=== PATIENT | male | born 1950 | race American Indian/Alaskan Native ===

== ENCOUNTER 2019-03-11 11:29 | Observation (INO) | payer MEDICARE ==
[2019-03-09 12:59] LABS: Basophils % (Auto) 0.3 % (0.0-1.8); Eosinophils # (Auto) 0.4 K/mm3 (0.0-0.4); Hematocrit 44.3 % (35.5-45.6); Hemoglobin 14.1 gm/dl (11.8-15.2); Lymphocytes # (Auto) 3.8 K/mm3 (1.2-5.4); Mean Corpuscular HGB Conc 32 % (32-34); Mean Corpuscular Volume 84 fl (84-94); Monocytes # (Auto) 0.4 K/mm3 (0.0-0.8); Monocytes % (Auto) 6.1 % (0.0-7.3); Platelet Count 238 K/mm3 (140-440); Red Cell Distribution Width 13.7 % (13.2-15.2)
[2019-03-09 13:18] LABS: Alanine Aminotransferase 12 units/L (7-56); Albumin 4.4 g/dL (3.9-5); BUN/Creatinine Ratio 17; Blood Urea Nitrogen 15 mg/dL (9-20); Calcium 9.9 mg/dL (8.4-10.2); Hemolysis Index 31
--- NOTE | 2019-03-09 16:18 | Anesthesia Consultation ---
Anesthesia Consult and Med Hx Date of service: 03/09/19 - Airway ROM Head & Neck: Adequate Mental/Hyoid Distance: Adequate Mallampati Class: Class II Intubation Access Assessment: Good - Pulmonary Exam CTA: Yes - Cardiac Exam Cardiac Exam: RRR - Pre-Operative Health Status ASA Pre-Surgery Classification: ASA2 Proposed Anesthetic Plan: General - Pulmonary Hx Smoking: No Hx Sleep Apnea: No (MARIAMA PRE SCREEN HIGH RISK) - Cardiovascular System Hx Hypertension: Yes (X 3 YRS)
[~2019-03-11 11:29] MED LIST: HYDROmorphone 1 MG/1 ML INJ IV PRN; MIDAZOLAM 2 MG/2 ML INJ IV NR; ceFAZolin/STERILE WATER 2 GM/20 ML SYRINGE IV NR
[2019-03-11] MEDS: SODIUM CHLORIDE 0.9% 1000 ML 1,000 ML IV SCH ×2 (11:50→17:55)
--- NOTE | 2019-03-11 12:05 | Anesthesia Day of Surgery ---
Anesthesia Day of Surgery - Day of Surgery Patient Examined: Yes Patient H&P Reviewed: Yes Patient is NPO: Yes
[2019-03-11] MEDS ORDERED: NEOMY 40 MG/POLYMYXIN B 200,000 UNITS/ML (GU) AMPULE IR ONE ×2 (12:34→13:42)
[2019-03-11] MEDS ORDERED: PROPOFOL 200 MG/20 ML VIAL IV ONE (12:35)
[2019-03-11] MEDS ORDERED: fentaNYL 100 MCG/2 ML INJ ONE (12:35)
[2019-03-11] MEDS ORDERED: LIDOCAINE MPF (2%) 20 MG/1 ML VIAL 5 ML ONE (13:00)
[2019-03-11] MEDS ORDERED: ONDANSETRON 4 MG/2 ML INJ ONE (13:13)
[2019-03-11] MEDS ORDERED: ePHEDrine SULFATE 50 MG/1 ML INJ ONE (13:27)
[2019-03-11] MEDS ORDERED: BUPIVACAINE/PF (0.5%) 5 MG/1 ML 30 ML VIAL INFILTRATI ONE (13:40)
[2019-03-11] MEDS ORDERED: SODIUM CHLORIDE 0.9% P/F 10 ML VIAL IV ONE (13:41)
[2019-03-11] MEDS ORDERED: SODIUM CHLORIDE 0.9% IRR 1,500 ML BOTTLE IR ONE (13:42)
[2019-03-11] MEDS ORDERED: SODIUM CHLORIDE 0.9% 1000 ML 1,000 ML ONE (13:54)
[2019-03-11] MEDS ORDERED: GENTAMICIN/NS 100 MG/100 ML 100 MG/100 ML BAG IV ONE (14:06)
[2019-03-11] MEDS ORDERED: ACETAMINOPHEN 325 MG TAB PO PRN (14:37)
[2019-03-11] MEDS ORDERED: ONDANSETRON 4 MG/2 ML INJ IV PRN (14:37)
[2019-03-11] MEDS ORDERED: ZOLPIDEM 5 MG TAB PO PRN (14:37)
[2019-03-11] MEDS ORDERED: NALOXONE 0.4 MG/1 ML INJ IV PRN (14:37)
--- NOTE | 2019-03-11 14:37 | Short Stay Summary ---
Short Stay Documentation Date of service: 03/11/19 - History H&P: obtained from office - Allergies and Medications Current Medications: Allergies No Known Allergies Allergy (Verified 02/26/19 12:05) Home Medications Medication Instructions Recorded Confirmed Last Taken Type Albuterol Sulfate [Proventil Hfa] 2 puff IH PRN PRN 02/26/19 03/11/19 03/10/19 History AtorvaSTATin [Lipitor] 10 mg PO QHS 02/26/19 03/11/19 03/08/19 History Cetirizine HCl [ZyrTEC 10mg cap] 10 mg PO PRN PRN 02/26/19 03/11/19 03/10/19 History Cholecalciferol Vit D3 [Vitamin D3 1,000 unit PO QDAY 02/26/19 02/26/19 03/09/19 History 1,000 UNIT TAB] Cyanocobalamin (Vitamin B-12) 2,500 mcg PO DAILY 02/26/19 02/26/19 03/09/19 History [Vitamin B12] Losartan/Hydrochlorothiazide 1 each PO PRN PRN 02/26/19 03/11/19 03/11/19 07:30 History [Losartan-Hctz 50-12.5 mg Tab] metFORMIN [Glucophage] 500 mg PO QDAY 02/26/19 03/11/19 03/10/19 History Fluticasone [Flonase] 1 spray NS QDAY 03/11/19 03/11/19 03/10/19 History Active Medications Cefazolin Sodium (Ancef/Sterile Water 2 Gm/20 Ml) 2 gm IV PREOP NR Stop: 03/11/19 23:59 Hydromorphone HCl (Dilaudid) 0.5 mg IV Q10MIN PRN PRN Reason: Pain , Severe (7-10) Stop: 03/11/19 16:00 Sodium Chloride (Nacl 0.9% 1000 Ml) 1,000 mls @ 100 mls/hr IV DIRECT WILL Last Admin: 03/11/19 11:50 Dose: 100 mls/hr Documented by: - Brief post op/procedure progress note Date of procedure: 03/11/19 Pre-op diagnosis: ed Post-op diagnosis: same Procedure: ipp, scrotaplasty (18cm + 3cm RTE--AMS) Surgeon: MARLEN RO Estimated blood loss: 50-100ml Pathology: list (scrotal skin) Specimen disposition: to lab Condition: stable - Hospital course Hospital course: pt has nocro, bactrim at home post op info on chart - Disposition Condition at discharge: Stable Disposition: DC-01 TO HOME OR SELFCARE Short Stay Discharge Plan Follow up with: DR STEVE [Other] - 7 Days
[2019-03-11] MEDS ORDERED: NON-FORMULARY EACH (Losartan/Hydrochlorothiazide [Losartan-Hctz 50-12.5 Mg Tab] 1 EACH) PO PRN (14:40)
[2019-03-11] MEDS ORDERED: ALBUTEROL 8.5 GM INHALATION IH PRN (14:40)
[2019-03-11] MEDS ORDERED: DEXTROSE 50% IN WATER (25GM) 50 ML SYRINGE IV PRN ×2 (14:42→20:00)
[2019-03-11] MEDS ORDERED: SODIUM CHLORIDE 0.45% 1000 ML 1,000 ML IV SCH (15:00)
--- NOTE | 2019-03-11 15:20 | Operative Report ---
PREOPERATIVE DIAGNOSIS: Erectile dysfunction. POSTOPERATIVE DIAGNOSIS: Erectile dysfunction and redundant scrotal skin. PROCEDURE: Insertion of inflatable penile prosthesis (AMS and InhibiZone 18-Faroese 18 cm x 3 cm rear tip extenders), injection of pharmacologic penile agent and scrotoplasty. SURGEON: Luis Han MD ANESTHESIA: General. INSPECTOR SEMICONDUCTOR WAFER: Peg Dyson. ESTIMATED BLOOD LOSS: Minimal. FLUIDS: Crystalloid. COMPLICATIONS: No complications. INDICATIONS: This patient is a 69-year-old gentleman who presents after being referred by Dr. Alfaro for evaluation of erectile dysfunction. He had a radical prostatectomy in 2011, operative note not available, [facility]. We discussed options. Written information was discussed. He has tried nonsurgical options without success. He presents now for surgical intervention. DESCRIPTION OF PROCEDURE: The patient was taken to the operative suite, placed in a supine position. After adequate general anesthesia, he was prepped and draped in a sterile fashion. Terry catheter was placed on the operative field. Peg Dyson was present during the entire case as a surgical services manager at the bedside. Terry catheter was placed. A transscrotal incision was made. Yellow stays were placed on the skin. A 2-0 Vicryl stays were placed into the corporal bodies prior to stay sutures placed, injection of pharmacologic agent 0.25% Marcaine was performed to help with postop anesthesia and created an artificial erection, no curvature could be appreciated. Corporotomies were made. Gentle dilation was performed. Measuring tool was used, a total measurement bilaterally was 21 cm; therefore, an 18 cm InhibiZone device was used with 100 mL AMC conceal reservoir was used. The reservoir was placed in the retropubic space via the right external ring, 100 mL saline was inserted into the reservoir without difficulty. The cylinders were prepped and placed in the corporal bodies with the aid of a Cliff needle. Corporotomies were closed with 2-0 Vicryl in interrupted fashion. A total measurement of the penis from the pubic symphysis to the tip of the penis was 11 cm. Insufflation of the cylinders, excellent cosmetic response, mottling procedure was performed. There was significant cracking of corporal bodies, suggesting that he should get excellent result. The reservoir was connected to the pump using the quick click connection system. Again, cycling was performed with an excellent response. The pump was placed in the dependent portion of the scrotum. Pursestring suture was used to secure the dependent portion with a running 2-0 Vicryl. Dartos layer was closed with 2-0 Vicryl in a running fashion. Excess scrotal skin was excised and was sent for routine pathologic evaluation. Skin was closed with 2-0 chromic in interrupted fashion. Xeroform gauze was placed and mummy wrap. The patient tolerated the procedure well and was extubated and taken to recovery room in stable condition. He will be observed overnight and go home on Bactrim and [place]. JOB# [id number] [facility]
[2019-03-11] MEDS: MORPHINE 2 MG/1 ML INJ IV PRN ×2 (16:20→19:34)
[2019-03-11] MEDS: hydroCHLOROthiazide 12.5 MG CAP PO SCH (16:32)
[2019-03-11] MEDS: LOSARTAN 50 MG TAB PO SCH (16:32)
[2019-03-11] MEDS: INSULIN REGULAR, HUMAN 100 UNITS/1 ML SUB-Q SCH ×2 (17:51→22:41)
[2019-03-11] MEDS: HYDROcodone/ACETAMINOPHEN 5-325 MG TAB PO PRN (17:55)
--- NOTE | 2019-03-11 17:56 | Post Anesthesia Evaluation ---
- Post Anesthesia Evaluation Patient Participated: Yes Airway Patent: Yes Stable Respiratory Function: Yes Nausea/Vomiting: No Temp > 96.8F: Yes Pain Manageable: Yes Adequeate Hydration: Yes Anesthesia Complications: No
--- NOTE | 2019-03-11 20:04 | Consultation ---
History of Present Illness - Reason for Consult Consult date: 03/11/19 HTN, DM Requesting physician: MARLEN HAN - History of Present Illness 69 YO Male with HTN, DM admitted for Urologic surgery. Consult placed by Dr. Han for medical management. Pt seen and evaluated upon arrival to his room. Pt denies fever, chills, CP, Palpitations, NVD, Trauma, BRBPR, Productive cough, skin rash, or recent ill contacts. No reported nursing events. Past History Past Medical History: diabetes, hypertension Past Surgical History: Other (Penile implant) Social history: . denies: smoking, alcohol abuse, prescription drug abuse Family history: diabetes, hypertension Medications and Allergies Allergies Allergy/AdvReac Type Severity Reaction Status Date / Time No Known Allergies Allergy Verified 02/26/19 12:05 Home Medications Medication Instructions Recorded Confirmed Last Taken Type Albuterol Sulfate [Proventil Hfa] 2 puff IH PRN PRN 02/26/19 03/11/19 03/10/19 History AtorvaSTATin [Lipitor] 10 mg PO QHS 02/26/19 03/11/19 03/08/19 History Cetirizine HCl [ZyrTEC 10mg cap] 10 mg PO PRN PRN 02/26/19 03/11/19 03/10/19 History Cholecalciferol Vit D3 [Vitamin D3 1,000 unit PO QDAY 02/26/19 02/26/19 03/09/19 History 1,000 UNIT TAB] Cyanocobalamin (Vitamin B-12) 2,500 mcg PO DAILY 02/26/19 02/26/19 03/09/19 History [Vitamin B12] Losartan/Hydrochlorothiazide 1 each PO PRN PRN 02/26/19 03/11/19 03/11/19 07:30 History [Losartan-Hctz 50-12.5 mg Tab] metFORMIN [Glucophage] 500 mg PO QDAY 02/26/19 03/11/19 03/10/19 History Fluticasone [Flonase] 1 spray NS QDAY 03/11/19 03/11/19 03/10/19 History Active Meds: Active Medications Acetaminophen (Tylenol) 650 mg PO Q4H PRN PRN Reason: Pain MILD(1-3)/Fever >100.5/ROWAN Acetaminophen/Hydrocodone Bitart ([place] 5/325) 2 each PO Q6H PRN PRN Reason: Pain, Moderate (4-6) Last Admin: 03/11/19 17:55 Dose: 2 each Documented by: Albuterol (Proair) 2 puff IH PRN PRN PRN Reason: Wheezing Atorvastatin Calcium (Atorvastatin) 10 mg PO QHS [facility] Cefazolin Sodium (Ancef/Sterile Water 2 Gm/20 Ml) 2 gm IV PREOP NR Stop: 03/11/19 23:59 Cholecalciferol (Vitamin D3) 1,000 unit PO QDAY [facility] Dextrose (D50w (25gm) Syringe) 50 ml IV Q30MIN PRN PRN Reason: Hypoglycemia Fluticasone Propionate (Flonase) 50 mcg NS QDAY WILL Hydrochlorothiazide (Hctz) 12.5 mg PO QDAY [facility] Last Admin: 03/11/19 16:32 Dose: 12.5 mg Documented by: Sodium Chloride (Nacl 0.9% 1000 Ml) 1,000 mls @ 100 mls/hr IV DIRECT WILL Last Admin: 03/11/19 17:55 Dose: 100 mls/hr Documented by: Sodium Chloride (Nacl 0.45% 1000 Ml) 1,000 mls @ 100 mls/hr IV DIRECT WILL Last Admin: 03/11/19 16:31 Dose: 100 mls/hr Documented by: Insulin Human Regular (Humulin R) 0 units SUB-Q ACHS [facility]; Protocol Last Admin: 03/11/19 17:51 Dose: Not Given Documented by: Levofloxacin (Levaquin) 500 mg PO Q24HR [facility] Losartan Potassium (Cozaar) 50 mg PO QDAY [facility] Last Admin: 03/11/19 16:32 Dose: 50 mg Documented by: Morphine Sulfate (Morphine) 2 mg IV Q4H PRN PRN Reason: Pain, Moderate (4-6) Last Admin: 03/11/19 19:34 Dose: 2 mg Documented by: Naloxone HCl (Naloxone) 0.1 mg IV Q2MIN PRN PRN Reason: Res Rate </= 8 or 02 SAT < 92% Ondansetron HCl (Zofran) 4 mg IV Q8H PRN PRN Reason: Nausea And Vomiting Sodium Chloride (Sodium Chloride Flush Syringe 10 Ml) 10 ml IV BID [facility] Sodium Chloride (Sodium Chloride Flush Syringe 10 Ml) 10 ml IV PRN PRN PRN Reason: LINE FLUSH Zolpidem Tartrate (Ambien) 5 mg PO QHS PRN PRN Reason: Insomnia Review of Systems Constitutional: no weight loss, no weight gain, no fever, no chills Ears, nose, mouth and throat: no ear pain, no ear discharge, no tinnitis, no decreased hearing, no nasal congestion, no nasal discharge Cardiovascular: no chest pain, no orthopnea, no palpitations, no rapid/irregular heart beat, no edema, no lightheadedness Respiratory: no cough, no cough with sputum, no excessive sputum, no shortness of breath, no dyspnea on exertion Gastrointestinal: no abdominal pain, no nausea, no vomiting, no diarrhea, no constipation, no change in bowel habits Genitourinary Male: no hematuria, no flank pain, no discharge, no urinary frequency, no urinary hesitancy Rectal: no pain, no bleeding Musculoskeletal: no shooting arm pain, no leg numbness/tingling, no redness of joints Integumentary: no rash, no pruritis, no redness, no sores, no wounds Neurological: no transient paralysis, no paralysis, no parathesias, no numbness, no tingling, no seizures, no syncope Psychiatric: no anxiety, no memory loss, no sleep disturbances, no hypersomnia, no change in appetite Endocrine: no cold intolerance, no heat intolerance, no excessive thirst, no polydipsia, no polyuria, no nocturia, no excessive sweating Hematologic/Lymphatic: no easy bruising, no easy bleeding, no lymphadenopathy, no lymphedema Allergic/Immunologic: no urticaria, no wheezing, no persistent infections, no anaphylaxis Exam - Constitutional Vitals: Temp Pulse Resp BP Pulse Ox 97.6 F 79 20 139/72 99 03/11/19 19:31 03/11/19 19:31 03/11/19 19:31 03/11/19 19:31 03/11/19 19:31 General appearance: Present: no acute distress, well-nourished - EENT Eyes: Present: PERRL ENT: hearing intact, clear oral mucosa - Neck Neck: Present: supple, normal ROM - Respiratory Respiratory effort: normal Respiratory: bilateral: CTA - Cardiovascular Heart Sounds: Present: S1 & S2. Absent: rub, click - Extremities Extremities: pulses symmetrical, No edema Peripheral Pulses: within normal limits - Abdominal General gastrointestinal: Present: soft, non-tender, non-distended, normal bowel sounds Male genitourinary: Present: normal - Integumentary Integumentary: Present: clear, warm, dry - Musculoskeletal Musculoskeletal: gait normal, strength equal bilaterally - Psychiatric Psychiatric: appropriate mood/affect, intact judgment & insight - Neurologic Neurologic: CNII-XII intact, moves all extremities Results - Labs CBC & Chem 7: 03/09/19 12:30 03/09/19 12:30 Labs: Abnormal lab results 03/11/19 Range/Units 12:26 POC Glucose 133 H (70-105) Assessment and Plan - Patient Problems (1) HTN (hypertension) Current Visit: Yes Status: Acute Qualifiers: Hypertension type: essential hypertension Qualified Code(s): I10 - Essential (primary) hypertension Plan to address problem: Monitor BP q shift, continue medical management, pain control. (2) Diabetes Current Visit: Yes Status: Acute Plan to address problem: ADA diet, sliding scale insulin, accu check, hypoglycemia protocol, resume oral antihyperglycemic therapy at discharge.
[2019-03-12] MEDS: HYDROcodone/ACETAMINOPHEN 5-325 MG TAB PO PRN ×2 (01:12→11:01)
[2019-03-12] MEDS: INSULIN LISPRO 100 UNIT/ML SUB-Q SCH ×3 (01:49→12:36)
[2019-03-12] MEDS: SODIUM CHLORIDE 0.9% 1000 ML 1,000 ML IV SCH ×2 (02:03→04:41)
[2019-03-12] MEDS ORDERED: FLUTICASONE PROPIONATE NASAL SPRAY 16 GM NS SCH (10:00)
[2019-03-12] MEDS ORDERED: CHOLECALCIFEROL (VIT D3) 1000 UNIT TAB PO SCH (10:00)
[2019-03-12] MEDS ORDERED: levoFLOXacin 500 MG TAB PO SCH (10:00)
[2019-03-12] MEDS ORDERED: metFORMIN 500 MG TAB PO SCH (10:00)
[2019-03-12] MEDS: INSULIN REGULAR, HUMAN 100 UNITS/1 ML SUB-Q SCH ×3 (10:41→16:31)
[2019-03-12] MEDS: LOSARTAN 50 MG TAB PO SCH (10:43)
[2019-03-12] MEDS: hydroCHLOROthiazide 12.5 MG CAP PO SCH (10:44)
--- NOTE | 2019-03-12 15:17 | Progress Note ---
Assessment and Plan Assessment and plan: 69-year-old man with history of hypertension diabetes. Admitted to the hospital under the care of Dr. Han, for penile implants. Medicine consulted for management of hypertension and diabetes Diagnosis Hypertension Diabetes Erectile dysfunction status post penile implant Plan Blood pressure and blood sugar well controlled Patient is medically stable for discharge, discharge per primary team DVT prophylaxis per primary team History Interval history: Review of systems Constitutional: No fevers, no malaise, no joint pains CVS: No chest pain, no orthopnea, no pedal edema GI: No abdominal pain, no diarrhea, no vomiting, no constipation Respiratory: No shortness of breath, no wheezing, no coughing Hospitalist Physical - Physical exam Narrative exam: General.: Appears well, no distress, nontoxic HEENT: Moist mucous membranes, extraocular muscles intact, no lymphadenopathy Neck: supple Cardiac: S1-S2 heard Lungs: clear to auscultation bilaterally Abdomen: soft , nontender, nondistended, bowel sounds positive Extremities: no edema clubbing or cyanosis Skin: no rash or lesions Neurologic: no gross focal deficits Psych: calm, and cooperative - Constitutional Vitals: Temp Pulse Resp BP Pulse Ox 98.9 F 88 18 126/68 96 03/12/19 12:29 03/12/19 12:29 03/12/19 12:29 03/12/19 12:29 03/12/19 08:32 General appearance: Present: no acute distress, well-nourished Results - Labs CBC & Chem 7: 03/09/19 12:30 03/09/19 12:30 Labs: Laboratory Last Values WBC 7.3 K/mm3 (4.5-11.0) 03/09/19 12:30 RBC 5.30 M/mm3 (3.65-5.03) H 03/09/19 12:30 Hgb 14.1 gm/dl (11.8-15.2) 03/09/19 12:30 Hct 44.3 % (35.5-45.6) 03/09/19 12:30 MCV 84 fl (84-94) 03/09/19 12:30 MCH 27 pg (28-32) L 03/09/19 12:30 MCHC 32 % (32-34) 03/09/19 12:30 RDW 13.7 % (13.2-15.2) 03/09/19 12:30 Plt Count 238 K/mm3 (140-440) 03/09/19 12:30 Lymph % (Auto) 52.0 % (13.4-35.0) H 03/09/19 12:30 [place] % (Auto) 6.1 % (0.0-7.3) 03/09/19 12:30 Eos % (Auto) 6.0 % (0.0-4.3) H 03/09/19 12:30 Baso % (Auto) 0.3 % (0.0-1.8) 03/09/19 12:30 Lymph # 3.8 K/mm3 (1.2-5.4) 03/09/19 12:30 [place]ansom # 0.4 K/mm3 (0.0-0.8) 03/09/19 12:30 Eos # 0.4 K/mm3 (0.0-0.4) 03/09/19 12:30 Baso # 0.0 K/mm3 (0.0-0.1) 03/09/19 12:30 Seg Neutrophils % 35.6 % (40.0-70.0) L 03/09/19 12:30 Seg Neutrophils # 2.6 K/mm3 (1.8-7.7) 03/09/19 12:30 Sodium 138 mmol/L (137-145) 03/09/19 12:30 Potassium 4.1 mmol/L (3.6-5.0) 03/09/19 12:30 Chloride 102.6 mmol/L (98-107) 03/09/19 12:30 Carbon Dioxide 22 mmol/L (22-30) 03/09/19 12:30 Anion Gap 18 mmol/L 03/09/19 12:30 BUN 15 mg/dL (9-20) 03/09/19 12:30 Creatinine 0.9 mg/dL (0.8-1.5) 03/09/19 12:30 Estimated GFR > 60 ml/min 03/09/19 12:30 BUN/Creatinine Ratio 17 % 03/09/19 12:30 Glucose 132 mg/dL (75-100) H 03/09/19 12:30 POC Glucose 155 (70-105) H 03/12/19 11:40 Calcium 9.9 mg/dL (8.4-10.2) 03/09/19 12:30 Total Bilirubin 0.40 mg/dL (0.1-1.2) 03/09/19 12:30 AST 20 units/L (5-40) 03/09/19 12:30 ALT 12 units/L (7-56) 03/09/19 12:30 Alkaline Phosphatase 50 units/L (35-129) 03/09/19 12:30 Total Protein 7.6 g/dL (6.3-8.2) 03/09/19 12:30 Albumin 4.4 g/dL (3.9-5) 03/09/19 12:30 Albumin/Globulin Ratio 1.4 % 03/09/19 12:30 Active Medications - Current Medications Current Medications: Generic Name Dose Route Start Last Admin Trade Name Freq PRN Reason Stop Dose Admin Acetaminophen 650 mg 03/11/19 14:37 Tylenol PO Q4H PRN Pain MILD(1-3)/Fever >100.5/ROWAN Acetaminophen/Hydrocodone Bitart 2 each 03/11/19 14:37 03/12/19 11:01 [place] 5/325 PO 2 each Q6H PRN Administration Pain, Moderate (4-6) Albuterol 2 puff 03/11/19 14:40 Proair IH PRN PRN Wheezing Atorvastatin Calcium 10 mg 03/11/19 22:00 03/11/19 21:30 Atorvastatin PO 10 mg QHS WILL Administration Cholecalciferol 1,000 unit 03/12/19 10:00 03/12/19 10:43 Vitamin D3 PO 1,000 unit QDAY WILL Administration Dextrose 50 ml 03/11/19 14:42 D50w (25gm) Syringe IV Q30MIN PRN Hypoglycemia Dextrose 50 ml 03/11/19 20:00 D50w (25gm) Syringe IV Q30MIN PRN Hypoglycemia Fluticasone Propionate 50 mcg 03/12/19 10:00 03/12/19 10:42 Flonase NS 50 mcg QDAY WILL Administration Hydrochlorothiazide 12.5 mg 03/11/19 15:00 03/12/19 10:44 Hctz PO 12.5 mg QDAY WILL Administration Sodium Chloride 1,000 mls @ 100 mls/hr 03/09/19 17:00 03/12/19 04:41 Nacl 0.9% 1000 Ml IV 100 mls/hr DIRECT WILL Administration Sodium Chloride 1,000 mls @ 100 mls/hr 03/11/19 15:00 03/11/19 16:31 Nacl 0.45% 1000 Ml IV 100 mls/hr DIRECT WILL Administration Insulin Human Lispro 0 unit 03/12/19 00:00 03/12/19 12:36 Humalog SUB-Q Not Given Q6HR WILL Protocol Insulin Human Regular 0 units 03/11/19 16:30 03/12/19 10:42 Humulin R SUB-Q 2 units ACHS WILL Administration Protocol Levofloxacin 500 mg 03/12/19 10:00 03/12/19 10:44 Levaquin PO 500 mg Q24HR WILL Administration Losartan Potassium 50 mg 03/11/19 15:00 03/12/19 10:43 Cozaar PO 50 mg QDAY WILL Administration Morphine Sulfate 2 mg 03/11/19 14:37 03/11/19 19:34 Morphine IV 2 mg Q4H PRN Administration Pain, Moderate (4-6) Naloxone HCl 0.1 mg 03/11/19 14:37 Naloxone IV Q2MIN PRN Res Rate </= 8 or 02 SAT < 92% Ondansetron HCl 4 mg 03/11/19 14:37 03/12/19 02:03 Zofran IV 4 mg Q8H PRN Administration Nausea And Vomiting Sodium Chloride 10 ml 03/11/19 22:00 03/12/19 10:44 Sodium Chloride Flush Syringe 10 Ml IV Not Given BID WILL Sodium Chloride 10 ml 03/11/19 14:37 Sodium Chloride Flush Syringe 10 Ml IV PRN PRN LINE FLUSH Zolpidem Tartrate 5 mg 03/11/19 14:37 03/11/19 22:48 Ambien PO 5 mg QHS PRN Administration Insomnia
[2019-03-12] MEDS: MORPHINE 2 MG/1 ML INJ IV PRN (16:31)
[2019-03-12 16:44] VITALS: BP 124/67
== END 2019-03-12 19:00 | disposition home or self-care (01) ==
LOC: OR 11:29 → 3B-SURG 14:37
PROVIDERS: ADMIT Urology; ATTEND Urology
DX: N52.9 Male erectile dysfunction, unspecified (principal); C61 Malignant neoplasm of prostate; I10 Essential (primary) hypertension; E11.9 Type 2 diabetes mellitus without complications; Z79.84 Long term (current) use of oral hypoglycemic drugs
CPT/HCPCS: 36415; 54401; 55175; 80053; 82962; 85025; 88305; 96372; 96374; 96375; 96376; A9270; C1813; G0378; J0690; J1170; J1580; J2270; J2405; J2704; J3010; J7030; J1815; J2250